=== PATIENT | female | born 1965 | race Caucasian/White ===

== ENCOUNTER → 2018-07-19 | Emergency (ER) | payer OTHER ==
[~2018-07-19] VITALS: Ht 160 cm; Wt 54.4 kg
[~2018-07-19] MED LIST: INTESTINEX680 M1 PO; ONDANSETRON ODT4 MG SL; PEPCID AC20 MG PO
== END | disposition home or self-care (01) ==
LOC: ER 21:50
DX: K52.9 Noninfective gastroenteritis and colitis, unspecified (principal)

== ENCOUNTER 2019-12-20 13:47 | Outpatient (CLI) | payer OTHER | END 2019-12-20 14:05 | disposition home or self-care (01) | LOC: MAMO-SONO 13:47 | PROVIDERS: ATTEND Obstetrics & Gynecology | DX: Z12.31 Encounter for screening mammogram for malignant neoplasm of breast (principal); N60.11 Diffuse cystic mastopathy of right breast; N60.12 Diffuse cystic mastopathy of left breast ==